=== PATIENT | female | born 1980 | race Caucasian/White ===

== ENCOUNTER 2019-02-06 19:43 | Emergency (ER) | payer OTHER ==
[2019-02-06 20:06] VITALS: BP 130/75; PULSE 93; RESP 18; TEMP 98.4
--- NOTE | 2019-02-06 20:46 | ED ---
General Adult HPI - General Source: patient, RN notes reviewed Mode of arrival: ambulatory Limitations: no limitations <Calos Campoverde P - Last Filed: 02/06/19 21:02> <Emma Short P - Last Filed: 02/07/19 06:39> - General Chief complaint: Urogenital Stated complaint: Urogenital Time Seen by Provider: 02/06/19 20:10 - History of Present Illness Initial comments: 38 year old female presents to the emergency department for a chief complaint of possible tampon in vaginal canal. Patient states that yesterday she did put a tampon in she had some very light spotting. She states that she put another one in today and thinks that she forgot to take the one out from yesterday. Patient states her only symptom is nausea, denies any abdominal pain. Denies any vaginal bleeding at this time. Patient denies any foul discharge or fevers. Patient has no other complaints at this time including shortness of breath, chest pain, abdominal pain, nausea or vomiting, headache, or visual changes. (Calos Campoverde) - Related Data Home Medications Medication Instructions Recorded Confirmed Dextroamphetamine/Amphetamine 30 mg PO BID 02/06/19 02/06/19 [Adderall] Venlafaxine HCl [Effexor XR] 150 mg PO DAILY 02/06/19 02/06/19 Previous Rx's Medication Instructions Recorded Ondansetron [Zofran ODT] 4 mg PO Q8HR PRN #15 tab 02/06/19 Allergies Allergy/AdvReac Type Severity Reaction Status Date / Time No Known Allergies Allergy Verified 02/06/19 20:50 Review of Systems ROS Other: All systems not noted in ROS Statement are negative. <Calos Campoverde P - Last Filed: 02/06/19 21:02> ROS Other: All systems not noted in ROS Statement are negative. <Emma Short P - Last Filed: 02/07/19 06:39> ROS Statement: Those systems with pertinent positive or pertinent negative responses have been documented in the HPI. 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 Absent: scleral icterus, conjunctival injection, periorbital swelling ENT exam: Present: normal exam, mucous membranes moist Neck exam: Present: normal inspection, full ROM. Absent: tenderness, meningismus, lymphadenopathy Respiratory exam: Present: normal lung sounds bilaterally. Absent: respiratory distress, wheezes, rales, rhonchi, stridor Cardiovascular Exam: Present: regular rate, normal rhythm, normal heart sounds. Absent: systolic murmur, diastolic murmur, rubs, gallop, clicks GI/Abdominal exam: Present: soft, normal bowel sounds. Absent: distended, tenderness, guarding, rebound, rigid External exam: Present: normal external exam. Absent: erythema, swelling, lesions, lacerations, ecchymosis, other Speculum exam: Present: normal speculum exam. Absent: erythema, vaginal discharge, cervical discharge, vaginal bleeding, foreign body, tissue, laceration, other (no evidence of foreign body including tampon after thorough inspection around cervix) By manual exam: Present: normal by manual exam. Absent: cervical motion tenderness, adnexal tenderness, adnexal mass, uterine enlargement, uterine tenderness Neurological exam: Present: alert, oriented X3, CN II-XII intact Psychiatric exam: Present: normal affect, normal mood <Calos Campoverde P - Last Filed: 02/06/19 21:02> Course Vital Signs 02/06/19 20:01 Temperature 98.4 F Pulse Rate 93 Respiratory 18 Rate Blood Pressure 130/75 O2 Sat by Pulse 98 Oximetry Medical Decision Making <Calos Campoverde P - Last Filed: 02/06/19 21:02> <Emma Short P - Last Filed: 02/07/19 06:39> - Medical Decision Making 38 year old female presents to the emergency department for possible tampon in vaginal canal. Patient states she may have forgotten to take out her tampon yesterday but is unsure. States only symptom is nausea. Denies any abdominal pain. No abdominal tenderness. I did perform a speculum exam and thoroughly inspected the vaginal canal, do not see any evidence of tampon. No vaginal bleeding. After I told patient I do not see tampon she then requests a test stating may be that is why she is nauseous. States her last full period was about 9 weeks ago. test is negative. Blood in urine is likely due to spotting. However patient is notified of this and will follow up with primary care. Patient will be given Zofran for nausea. At this time I do not see an emergent cause for nausea as she does not have any abdominal pain whatsoever nor vomiting. She will return here if she has any worsening symptoms. (Calos Campoverde) I was available for consultation in the emergency department. The history and physical exam were done by the midlevel provider. I was consulted for this patient's care. I reviewed the case with the midlevel provider and based on their presentation of the patient, I agree with the assessment, medical decision making and plan of care as documented. (Emma Short) - Lab Data Lab Results 02/06/19 02/06/19 Range/Units 20:35 20:35 Urine Color Yellow Urine Appearance Cloudy H (Clear) Urine pH 5.5 (5.0-8.0) Ur Specific [place] 1.028 (1.001-1.035) Urine Protein Trace H (Negative) Urine Glucose (UA) Negative (Negative) Urine Ketones Negative (Negative) Urine Blood Moderate H (Negative) Urine Nitrite Negative (Negative) Urine Bilirubin Negative (Negative) Urine Urobilinogen <2.0 (<2.0) mg/dL Ur Leukocyte Esterase Negative (Negative) Urine RBC 3 (0-5) /hpf Urine WBC 2 (0-5) /hpf Ur Squamous Epith Cells 5 H (0-4) /hpf Urine Mucus Rare H (None) /hpf Urine HCG, Qual Not Detected (Not Detectd) Disposition Is patient prescribed a controlled substance at d/c from ED?: No Time of Disposition: 21:04 <Calos Campoverde - Last Filed: 02/06/19 21:02> <Emam Short - Last Filed: 02/07/19 06:39> Clinical Impression: No foreign body found on evaluation Disposition: HOME SELF-CARE Condition: Good Instructions (If sedation given, give patient instructions): Acute Nausea and Vomiting (ED) Additional Instructions: Please take Zofran as needed for nausea. Please follow-up with primary care in 1-2 days. Please return here to the emergency department if you have any worsening symptoms. Prescriptions: Ondansetron [Zofran ODT] 4 mg PO Q8HR PRN #15 tab PRN Reason: Nausea Referrals: Clyde Mendoza MD [STAFF PHYSICIAN] - 1-2 days
[2019-02-06 20:57] LABS: Appearance,Urine Cloudy (Clear); Bilirubin,Urine Negative (Negative); Blood,Urine Moderate (Negative); Color,Urine Yellow; Glucose,Urine (UA) Negative (Negative); Ketones,Urine Negative (Negative); Leukocyte Esterase,Urine Negative (Negative); Mucus,Urine Rare /hpf; Nitrite,Urine Negative (Negative); PH, Urine 5.5 (5.0-8.0); Protein,Urine Trace (Negative); RBC,Urine 3 /hpf (0-5); Specific Gravity,Urine 1.028 (1.001-1.035); Squamous Epithelial Cell,Urine 5 /hpf (0-4); Urobilinogen,Urine <2.0 mg/dL (<2.0); WBC,Urine 2 /hpf (0-5)
== END 2019-02-06 21:19 | disposition home or self-care (01) ==
LOC: EC 19:43
DX: R11.0 Nausea (principal); F17.200 Nicotine dependence, unspecified, uncomplicated; Z79.899 Other long term (current) drug therapy
CPT/HCPCS: 81001; 81025; 99283

== ENCOUNTER 2020-05-13 20:40 | Emergency (ER) | payer OTHER ==
[2020-05-13 20:44] VITALS: BP 111/72; PULSE 76; TEMP 98.3
--- NOTE | 2020-05-13 21:21 | ED ---
Female Urogenital HPI - General Chief complaint: Urogenital Stated complaint: Pelvic pain Time Seen by Provider: 05/13/20 20:56 Source: patient Mode of arrival: ambulatory Limitations: no limitations - History of Present Illness Initial comments: Patient is a 35-year-old female presenting to emergency Department with chief complaint of vaginal odor. Patient states approximately one week ago while having sex with her boyfriend, he noticed that "something is wrong". Patient reports over the last few days she developed some vaginal odor but no discharge. Patient states her last menstrual period was approximately 2 weeks ago and she used a tampon. Patient states while she had a tampon, they did have sex at nighttime and she could have potentially forgot to remove the tampon. Patient does report some suprapubic pressure but denies any dysuria, increased frequency or urgency. She denies any hematuria or vaginal itching. She is not concerned for STDs. Last Menstrual Period: 05/06/20 - Related Data Home Medications Medication Instructions Recorded Confirmed Dextroamphetamine/Amphetamine 30 mg PO BID@0500,1200 02/06/19 05/13/20 [Adderall] Venlafaxine HCl [Effexor XR] 150 mg PO DAILY 02/06/19 05/13/20 clonazePAM [KlonoPIN] 1 mg PO TID PRN 05/13/20 05/13/20 Previous Rx's Medication Instructions Recorded Fluconazole [Diflucan] 150 mg PO ONCE #2 tab 05/13/20 metroNIDAZOLE [Flagyl] 500 mg PO BID #14 tab 05/13/20 Allergies Allergy/AdvReac Type Severity Reaction Status Date / Time No Known Allergies Allergy Verified 05/13/20 21:56 Review of Systems ROS Statement: Those systems with pertinent positive or pertinent negative responses have been documented in the HPI. ROS Other: All systems not noted in ROS Statement are negative. 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 History of Any Multi-Drug Resistant Organisms: None Reported Additional Past Surgical History / Comment(s): Left eye surgery Past Psychological History: No Psychological Hx Reported Smoking Status: Current every day smoker Past Alcohol Use History: None Reported Past Drug Use History: Marijuana General Exam Limitations: no limitations General appearance: alert, in no apparent distress Head exam: Present: atraumatic, normocephalic, normal inspection Eye exam: Present: normal appearance, PERRL, EOMI Pupils: Present: normal accommodation ENT exam: Present: normal exam, normal oropharynx, mucous membranes moist, TM's normal bilaterally, normal external ear exam Neck exam: Present: normal inspection, full ROM. Absent: tenderness Respiratory exam: Present: normal lung sounds bilaterally. Absent: respiratory distress, wheezes Cardiovascular Exam: Present: regular rate, normal rhythm, normal heart sounds External exam: Present: normal external exam. Absent: erythema, swelling, lesions, lacerations, ecchymosis Speculum exam: Present: normal speculum exam, vaginal discharge (Lynch vaginal discharge). Absent: erythema, cervical discharge, vaginal bleeding, foreign body (No signs of foreign body) Extremities exam: Present: normal inspection, full ROM. Absent: tenderness Back exam: Present: normal inspection, full ROM. Absent: tenderness Neurological exam: Present: alert, oriented X3 Psychiatric exam: Present: normal affect, normal mood Skin exam: Present: warm, dry, intact, normal color Course Vital Signs 05/13/20 05/13/20 20:42 22:57 Temperature 98.3 F Pulse Rate 76 Respiratory 20 18 Rate Blood Pressure 111/72 O2 Sat by Pulse 99 Oximetry Medical Decision Making - Medical Decision Making Patient is a 39-year-old female presenting to the emergency department with a c hief complaint of vaginal odor. Patient suspects there is a tampon in her vagina for approximately 2 weeks. On pelvic examination, no signs of foreign body were detected vagina. Although, there appears to be some lynch vaginal discharge. Patient will be treated for bacterial vaginosis with Flagyl. Patient advised not to drink alcohol with the medication. Patient also given a prescription for Diflucan in case she develops a yeast infection following the antibiotic use. UA reveals no signs of urinary tract infection. There is some blood detected. Patient is not . She was advised to follow-up with her primary care. Return parameters were thoroughly discussed the patient is understanding and agreeable. I offered patient gonorrhea and chlamydia testing, she declined. Case discussed with physician. - Lab Data Lab Results 05/13/20 05/13/20 Range/Units 21:53 21:53 Urine Color Yellow Urine Appearance Cloudy H (Clear) Urine pH 6.0 (5.0-8.0) Ur Specific [place] 1.050 H (1.001-1.035) Urine Protein 2+ H (Negative) Urine Glucose (UA) Negative (Negative) Urine Ketones Trace H (Negative) Urine Blood Small H (Negative) Urine Nitrite Negative (Negative) Urine Bilirubin Negative (Negative) Urine Urobilinogen 6.0 (<2.0) mg/dL Ur Leukocyte Esterase Negative (Negative) Urine RBC 40 H (0-5) /hpf Urine WBC 10 H (0-5) /hpf Ur Squamous Epith Cells 2 (0-4) /hpf Calcium Oxalate Crystal Few H (None) /hpf Hyaline Casts 3 H (0-2) /lpf Urine Mucus Many H (None) /hpf Urine HCG, Qual Not Detected (Not Detectd) Disposition Clinical Impression: Bacterial vaginosis, Vaginal odor Disposition: HOME SELF-CARE Condition: Stable Instructions (If sedation given, give patient instructions): Bacterial Vaginosis (ED) Additional Instructions: Take prescribed medication as directed. Only take the Diflucan if you develop a yeast infection. Follow with her primary care. Return to emergency department if symptoms worsen. Prescriptions: Fluconazole [Diflucan] 150 mg PO ONCE #2 tab metroNIDAZOLE [Flagyl] 500 mg PO BID #14 tab Is patient prescribed a controlled substance at d/c from ED?: No Referrals: None,Stated [Primary Care Provider] - 1-2 days Time of Disposition: 22:34
[2020-05-13 22:08] LABS: Appearance,Urine Cloudy (Clear); Bilirubin,Urine Negative (Negative); Blood,Urine Small (Negative); Calcium Oxalate Crystals,Urine Few /hpf; Color,Urine Yellow; Glucose,Urine (UA) Negative (Negative); Hyaline Casts,Urine 3 /lpf (0-2); Ketones,Urine Trace (Negative); Leukocyte Esterase,Urine Negative (Negative); Mucus,Urine Many /hpf; Nitrite,Urine Negative (Negative); Protein,Urine 2+ (Negative); RBC,Urine 40 /hpf (0-5); Squamous Epithelial Cell,Urine 2 /hpf (0-4); WBC,Urine 10 /hpf (0-5)
[2020-05-13] MEDS ORDERED: metroNIDAZOLE 500 MG TAB PO STA (22:25)
[2020-05-13 22:58] VITALS: RESP 18
== END 2020-05-13 22:58 | disposition home or self-care (01) ==
LOC: EC 20:40
DX: N76.0 Acute vaginitis (principal); F17.200 Nicotine dependence, unspecified, uncomplicated
CPT/HCPCS: 81001; 81025; 99284